=== PATIENT | female | born 1985 | race African-American/Black ===

== ENCOUNTER 2017-09-14 19:26 | Emergency (ER) | payer SELFPAY ==
[~2017-09-14] VITALS: Ht 172.7 cm; Wt 97.1 kg
[2017-09-14 19:54] VITALS: BP 156/74
== END 2017-09-15 01:00 | disposition left against medical advice (07) ==
LOC: ER 19:26
DX: M54.5 Low back pain (principal); R52 Pain, unspecified; Z53.21 Procedure and treatment not carried out due to patient leaving prior to being seen by health care provider; V49.3XXA Car occupant (driver) (passenger) injured in unspecified nontraffic accident, initial encounter; Y93.89 Activity, other specified; Y99.8 Other external cause status; Y92.89 Other specified places as the place of occurrence of the external cause